=== PATIENT | female | born 1985 | race Caucasian/White ===

== ENCOUNTER 2021-10-23 04:12 | Inpatient (IN) | payer BC ==
[2021-10-23] MEDS ORDERED: Nalbuphine 10 MG/1 ML Vial IVPUSH PRN (05:35)
[2021-10-23] MEDS ORDERED: Oxytocin/Lactated Ringers 10 UNIT/1,000 ML BAG IV SCH ×2 (05:45)
[2021-10-23] MEDS ORDERED: Lactated Ringers 1,000 ML IV SCH (05:45)
[2021-10-23] MEDS ORDERED: Bupivacaine/fentaNYL/NS 100 ML Bag EPIDUR PRN (06:12)
[2021-10-23] MEDS ORDERED: diphenhydrAMINE 50 MG/ML SDV IVPUSH PRN (06:12)
[2021-10-23] MEDS ORDERED: fentaNYL 100 MCG/2 ML SDV EPIDUR PRN (06:12)
[2021-10-23] MEDS ORDERED: ePHEDrine 50 MG/ML SDV IVPUSH PRN (06:12)
--- NOTE | 2021-10-23 06:15 | PCM.PREANE ---
Preanesthetic Assessment - Procedure Proposed Procedure: Labor epidural - Anesthesia/Transfusion/Family Hx Anesthesia History: Prior Anesthesia Without Reaction Family History of Anesthesia Reaction: No Transfusion History: No Prior Transfusion(s) Intubation History: Unknown - Review of Systems General: No Symptoms Pulmonary: Cough Cardiovascular: No Symptoms Gastrointestinal: Abdominal Pain (uterine contractions), Nausea Neurological: No Symptoms Other: Reports: Easy Bruising, Depression - Physical Assessment NPO Status Date: 10/22/21 NPO Status Time: 22:30 Vital Signs: Last Vital Signs Temp 97.7 F 10/23/21 04:55 Pulse 81 10/23/21 04:55 Resp 20 10/23/21 04:55 BP 124/80 10/23/21 04:55 Pulse Ox 94 L 10/23/21 04:55 Height: 1.7 m Weight: 121.109 kg ASA Class: 3 Mental Status: Alert & Oriented x3 Airway Class: Mallampati = 2 Dentition: Reports: Caries Thyro-Mental Finger Breadths: 3 Mouth Opening Finger Breadths: 3 ROM/Head Extension: Full Lungs: Clear to Auscultation, Normal Respiratory Effort Cardiovascular: Regular Rate, Regular Rhythm, No Murmurs - Lab Values: Laboratory Last Values WBC 8.76 K/mm3 (3.98-10.04) 10/23/21 05:50 RBC 4.30 M/mm3 (3.98-5.22) 10/23/21 05:50 Hgb 12.4 gm/dl (11.2-15.7) 10/23/21 05:50 Hct 36.6 % (34.1-44.9) 10/23/21 05:50 MCV 85.1 fl (79.4-94.8) 10/23/21 05:50 MCH 28.8 pg (25.6-32.2) 10/23/21 05:50 MCHC 33.9 g/dl (32.2-35.5) 10/23/21 05:50 RDW Std Deviation 41.0 fL (36.4-46.3) 10/23/21 05:50 Plt Count 182 K/mm3 (182-369) 10/23/21 05:50 MPV 11.5 fl (9.4-12.3) 10/23/21 05:50 Neut % (Auto) 76.8 % (34.0-71.1) H 10/23/21 05:50 Lymph % (Auto) 13.2 % (19.3-51.7) L 10/23/21 05:50 [place] % (Auto) 8.6 % (4.7-12.5) 10/23/21 05:50 Eos % (Auto) 0.7 (0.7-5.8) 10/23/21 05:50 Baso % (Auto) 0.2 % (0.1-1.2) 10/23/21 05:50 Neut # (Auto) 6.73 K/mm3 (1.56-6.13) H 10/23/21 05:50 Lymph # (Auto) 1.16 K/mm3 (1.18-3.74) L 10/23/21 05:50 [place] # (Auto) 0.75 K/mm3 (0.24-0.36) H 10/23/21 05:50 Eos # (Auto) 0.06 K/mm3 (0.04-0.36) 10/23/21 05:50 Baso # (Auto) 0.02 K/mm3 (0.01-0.08) 10/23/21 05:50 - Acknowledgements Anesthesia Type Planned: Epidural Pt an Appropriate Candidate for the Planned Anesthesia: Yes Alternatives and Risks of Anesthesia Discussed w Pt/Guardian: Yes Pt/Guardian Understands and Agrees with Anesthesia Plan: Yes PreAnesthesia Questionnaire HEENT History: Reports: None Cardiovascular History: Reports: None Respiratory History: Reports: None Gastrointestinal History: Reports: GERD Genitourinary History: Reports: None 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: Musculoskeletal History: Reports: None Neurological History: Reports: None Psychiatric History: Reports: None Endocrine/Metabolic History: Reports: Obesity/BMI 30+ Hematologic History: Reports: None Immunologic History: Reports: None Oncologic (Cancer) History: Reports: None Dermatologic History: Reports: None - Past Surgical History HEENT Surgical History: Reports: Oral Surgery (wisdom teeth) Female Surgical History: Reports: Other (See Below) ("early trimester ") - SUBSTANCE USE Tobacco Use Status *Q: Never Tobacco User Tobacco Use Within Last Twelve Months: No Second Hand Smoke Exposure: Yes Days Per Week of Alcohol Use: 0 Number of Drinks Per Day: 0 Total Drinks Per Week: 0 Recreational Drug Use History: No - CURRENT (IN HOUSE) MEDS Current Meds: Current Medications Lactated Ringer's (Ringers, Lactated) 1,000 mls @ 100 mls/hr IV ASDIRECTED NATTY Oxytocin/Lactated Ringer's (Pitocin In Lr 10 Units/1,000 Ml) 10 unit in 1,000 mls @ 12 mls/hr IV TITRATE NATTY; Protocol Oxytocin/Lactated Ringer's (Pitocin In Lr 10 Units/1,000 Ml) 10 unit in 1,000 mls @ 100 mls/hr IV .CONTINUOUS NATTY Nalbuphine HCl (Nalbuphine 10 Mg/1 Ml Vial) 10 mg IVPUSH Q2H PRN PRN Reason: Pain Sodium Chloride (Sodium Chloride 0.9% 10 Ml Syringe) 10 ml FLUSH 0900,2100 NATTY
--- NOTE | 2021-10-23 07:42 | PCM.LDHP ---
L&D History of Present Illness - General Date of Service: 10/23/21 Admit Problem/Dx: Patient Status Order with Admit Dx/Problem 10/23/21 04:57 Patient Status [ADT] Routine Admission Diagnosis/Problem Admission Diagnosis/Problem Source of Information: Patient History Limitations: Reports: No Limitations - History of Present Illness Introduction:: Patient is a 36 y/o at 39 6/7 wks who presented early this AM in labor. Contractions started middle of night. No LOF. Currently resting with epidural, but notes some more pressure Pain Score: 10 - Related Data Allergies/Adverse Reactions: Allergies Allergy/AdvReac Type Severity Reaction Status Date / Time acetaminophen Allergy Rash Verified 10/23/21 06:18 [From [facility] NyQuil Cold/Flu Liquicap] carrot Allergy Rash Verified 10/23/21 06:18 celery Allergy Rash Verified 10/23/21 06:18 dextromethorphan Allergy Rash Verified 10/23/21 06:18 [From [facility] NyQuil Cold/Flu Liquicap] doxylamine Allergy Rash Verified 10/23/21 06:18 [From [facility] NyQuil Cold/Flu Liquicap] Past Medical History Gastrointestinal History: Reports: GERD 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: : 4 Para: 2 LMP (Approximate): Psychiatric History: Reports: Depression Endocrine/Metabolic History: Reports: Obesity/BMI 30+ - Past Surgical History HEENT Surgical History: Reports: Oral Surgery (wisdom teeth) Female Surgical History: Reports: D&C Social & Family History - Tobacco Use Tobacco Use Status *Q: Never Tobacco User Second Hand Smoke Exposure: Yes - Alcohol Use Alcohol Use History: No Days Per Week of Alcohol Use: 0 Number of Drinks Per Day: 0 Total Drinks Per Week: 0 - Recreational Drug Use Recreational Drug Use: No H&P Review of Systems - Review of Systems: Review Of Systems: See Below General: Reports: No Symptoms Pulmonary: Reports: No Symptoms Cardiovascular: Reports: No Symptoms Gastrointestinal: Reports: No Symptoms Genitourinary: Reports: No Symptoms Musculoskeletal: Reports: No Symptoms Psychiatric: Reports: No Symptoms Neurological: Reports: No Symptoms L&D Exam - Exam Exam: See Below - Vital Signs Vital Signs: Last Vital Signs Temp 36.5 C 10/23/21 04:55 Pulse 81 10/23/21 04:55 Resp 20 10/23/21 04:55 BP 124/80 10/23/21 04:55 Pulse Ox 94 L 10/23/21 04:55 Weight: 121.109 kg - OB Specific Contraction Intensity: Strong Movement: Active Heart Tones: Present Heart Tones per Min: 135 Heart Rate (FHR) Variability: Moderate (6-25 bpm) Presentation: Vertex - Sharpe Score Sharpe Score Cervix Position: Midposition Sharpe Score Consistency: Soft Sharpe Score Effacement: >80% Sharpe Score Dilation: > 5 cm Sharpe Score Infant's Station: -2 Sharpe Score Total: 10 - Exam General: Alert, Oriented, Cooperative Lungs: Clear to Auscultation, Normal Respiratory Effort Cardiovascular: Regular Rate, Regular Rhythm GI/Abdominal Exam: Soft, Non-Tender Genitourinary: Normal external exam Extremities: Normal Inspection Skin: Warm, Dry, Intact - Patient Data Lab Results Last 24 hrs: Laboratory Results - last 24 hr 10/23/21 10/23/21 Range/Units 05:50 05:52 WBC 8.76 (3.98-10.04) K/mm3 RBC 4.30 (3.98-5.22) M/mm3 Hgb 12.4 (11.2-15.7) gm/dl Hct 36.6 (34.1-44.9) % MCV 85.1 (79.4-94.8) fl MCH 28.8 (25.6-32.2) pg MCHC 33.9 (32.2-35.5) g/dl RDW Std Deviation 41.0 (36.4-46.3) fL Plt Count 182 (182-369) K/mm3 MPV 11.5 (9.4-12.3) fl Neut % (Auto) 76.8 H (34.0-71.1) % Lymph % (Auto) 13.2 L (19.3-51.7) % [place] % (Auto) 8.6 (4.7-12.5) % Eos % (Auto) 0.7 (0.7-5.8) Baso % (Auto) 0.2 (0.1-1.2) % Neut # (Auto) 6.73 H (1.56-6.13) K/mm3 Lymph # (Auto) 1.16 L (1.18-3.74) K/mm3 [place] # (Auto) 0.75 H (0.24-0.36) K/mm3 Eos # (Auto) 0.06 (0.04-0.36) K/mm3 Baso # (Auto) 0.02 (0.01-0.08) K/mm3 SARS-CoV-2 RNA (DOUGLAS) Negative (NEGATIVE) Result Diagrams: 10/23/21 05:50 - Problem List (1) 39 weeks gestation of SNOMED Code(s): 63103217 ICD Code: Z3A.39 - 39 WEEKS GESTATION OF Status: Acute Current Visit: Yes (2) Normal labor SNOMED Code(s): 08660350 ICD Code: O80 - ENCOUNTER FOR FULL-TERM UNCOMPLICATED DELIVERY; Z37.9 - OUTCOME OF DELIVERY, UNSPECIFIED Status: Acute Current Visit: Yes Problem List Initiated/Reviewed/Updated: Yes Orders Last 24hrs: Active Orders 24 hr Category Date Time Status Patient Status [ADT] Routine ADT 10/23/21 04:57 Active Activity as Tolerated [RC] PFP Care 10/23/21 05:35 Active Communication Order [RC] ASDIRECTED Care 10/23/21 05:35 Active Heart Tones [RC] ASDIRECTED Care 10/23/21 05:37 Active Non Stress Test [RC] PER UNIT ROUTINE Care 10/23/21 04:57 Active Non Stress Test [RC] PER UNIT ROUTINE Care 10/23/21 05:35 Active Notify Provider [RC] ASDIRECTED Care 10/23/21 06:12 Active Notify Provider [RC] PFP Care 10/23/21 05:35 Active Notify Provider [RC] PRN Care 10/23/21 05:35 Active Peripheral IV Care [RC] . DIRECTED Care 10/23/21 05:37 Active Pump Management, Intrathecal [RC] ASDIRECTED Care 10/23/21 05:37 Active Urinary Catheter Assessment [RC] ASDIRECTED Care 10/23/21 05:35 Active Vital Signs [RC] PER UNIT ROUTINE Care 10/23/21 04:57 Active Vital Signs [RC] PER UNIT ROUTINE Care 10/23/21 05:35 Active Regular Diet [DIET] Diet 10/23/21 Breakfast Active RAPID PLASMA REAGIN,RPR [CHEM] Routine Lab 10/23/21 05:50 Received TYPE AND SCREEN [BBK] Stat Lab 10/23/21 05:50 Received Bupivacaine/fentaNYL/NS [fentaNYL/Bupivacaine/NS 2 MCG- Med 10/23/21 06:12 Active 0.125% 100 ML] 100 ml EPIDUR ASDIRECTED PRN Lactated Ringers [Ringers, Lactated] 1,000 ml Med 10/23/21 05:45 Active IV ASDIRECTED Nalbuphine [Nubain] Med 10/23/21 05:35 Active 10 mg IVPUSH Q2H PRN Oxytocin/Lactated Ringers [Pitocin in LR 10 Units/1,000 Med 10/23/21 05:45 Active ML] 10 unit in 1,000 ml IV .CONTINUOUS Oxytocin/Lactated Ringers [Pitocin in LR 10 Units/1,000 Med 10/23/21 05:45 A ctive ML] 10 unit in 1,000 ml IV TITRATE Sodium Chloride 0.9% [Saline Flush] Med 10/23/21 09:00 Active 10 ml FLUSH 0900,2100 diphenhydrAMINE [Benadryl] Med 10/23/21 06:12 Active 25 mg IVPUSH Q6H PRN ePHEDrine [ePHEDrine sulfate] Med 10/23/21 06:12 Active 5 mg IVPUSH ASDIRECTED PRN fentaNYL [Sublimaze] Med 10/23/21 06:12 Active 100 mcg EPIDUR Q3H PRN Electronic Heart Tones Ext w TOCO [WOMSER] Oth 10/23/21 05:35 Ordered Routine Electronic Heart Tones Internal [WOMSER] Per Unit Oth 10/23/21 05:35 Ordered Routine Peripheral IV Insertion Adult [OM.PC] Routine Oth 10/23/21 05:35 Ordered Resuscitation Status Routine Resus Stat 10/23/21 04:57 Ordered Medication Orders Diphenhydramine HCl (Diphenhydramine 50 Mg/Ml Sdv) 25 mg IVPUSH Q6H PRN PRN Reason: pruritis Ephedrine Sulfate (Ephedrine 50 Mg/Ml Sdv) 5 mg IVPUSH ASDIRECTED PRN PRN Reason: Hypotension Fentanyl (Fentanyl 100 Mcg/2 Ml Sdv) 100 mcg EPIDUR Q3H PRN PRN Reason: Pain Last Admin: 10/23/21 06:21 Dose: 100 mcg Documented by: [email or web address] Fentanyl/Bupivacaine HCl (Bupivacaine/Fentanyl/Ns 100 Ml Bag) 100 ml EPIDUR ASDIRECTED PRN PRN Reason: Pain Last Admin: 10/23/21 06:22 Dose: 100 ml Documented by: TYLER Lactated Ringer's (Ringers, Lactated) 1,000 mls @ 100 mls/hr IV ASDIRECTED NATTY Oxytocin/Lactated Ringer's (Pitocin In Lr 10 Units/1,000 Ml) 10 unit in 1,000 mls @ 12 mls/hr IV TITRATE NATTY; Protocol Oxytocin/Lactated Ringer's (Pitocin In Lr 10 Units/1,000 Ml) 10 unit in 1,000 mls @ 100 mls/hr IV .CONTINUOUS NATTY Nalbuphine HCl (Nalbuphine 10 Mg/1 Ml Vial) 10 mg IVPUSH Q2H PRN PRN Reason: Pain Sodium Chloride (Sodium Chloride 0.9% 10 Ml Syringe) 10 ml FLUSH 0900,2100 [facility] Assessment/Plan Comment:: * Routine cares * Breast feeding * Epidural in place * AROM done with release of meconium stained fluid * Anticipate
[2021-10-23] MEDS ORDERED: Sodium Chloride 0.9% 10 ML Syringe FLUSH SCH (09:00)
--- NOTE | 2021-10-23 09:43 | PCM.DEL ---
L & D Note - General Info Date of Service: 10/23/21 - Delivery Note Labor: Spontaneous Delivery Outcome: Livebirth Delivery Method: Spontaneous Vaginal Delivery-Single Delivery Mode: Spontaneous Presentation: Right Occiput Anterior (JEYSON) Nuchal Cord: Present (tight so not reduced ) Anesthesia Type: Epidural Amniotic Fluid Description: Meconium Stained Episiotomy Type: None Laceration: None Placenta: Intact, Spontaneous Cord: 3 Vessels Estimated Blood Loss: 200 [place]: Suctioned, Bulb Syringe, Stimulated, Warmed, [place] Used Delivery Comments (Free Text/Narrative):: Patient found to be complete and began pushing. With maternal pushing effort head delivered from JEYSON presentation. Nuchal cord present, but tight and so not reduced. With gentle downward traction the shoulders and body delivered. placed on maternal abdomen. Cord clamped and cut. Cord blood obtained. Placenta allowed time to separate and expelled intact. Inspection of perineum with small periurethral laceration. Not repaired - General Info Date of Service: 10/23/21 - Patient Data Vitals - Most Recent: Last Vital Signs Temp 36.5 C 10/23/21 04:55 Pulse 81 10/23/21 04:55 Resp 20 10/23/21 04:55 BP 124/80 10/23/21 04:55 Pulse Ox 94 L 10/23/21 04:55 Weight - Most Recent: 121.109 kg I&O - Last 24 Hours: Intake & Output 10/22/21 10/23/21 10/23/21 22:59 06:59 14:59 Intake Total 1000 Output Total 500 Balance 1000 -500 - Exam Urinary Catheter Total Time: 0Days 0Hours - Problem List & Annotations (1) 39 weeks gestation of SNOMED Code(s): 33330873 Code(s): Z3A.39 - 39 WEEKS GESTATION OF Status: Acute Current Visit: Yes (2) Normal labor SNOMED Code(s): 76684446 Code(s): O80 - ENCOUNTER FOR FULL-TERM UNCOMPLICATED DELIVERY; Z37.9 - OUTCOME OF DELIVERY, UNSPECIFIED Status: Acute Current Visit: Yes (3) Vaginal delivery SNOMED Code(s): 464380233 Code(s): O80 - ENCOUNTER FOR FULL-TERM UNCOMPLICATED DELIVERY Status: Acute Current Visit: Yes - Problem List Review Problem List Initiated/Reviewed/Updated: Yes - My Orders Last 24 Hours: My Active Orders 10/23/21 04:57 Patient Status [ADT] Routine Non Stress Test [RC] PER UNIT ROUTINE Vital Signs [RC] PER UNIT ROUTINE Resuscitation Status Routine 10/23/21 05:35 Activity as Tolerated [RC] PFP Communication Order [RC] ASDIRECTED Non Stress Test [RC] PER UNIT ROUTINE Notify Provider [RC] PFP Notify Provider [RC] PRN Urinary Catheter Assessment [RC] ASDIRECTED Vital Signs [RC] PER UNIT ROUTINE Nalbuphine [Nubain] 10 mg IVPUSH Q2H PRN Electronic Heart Tones Ext w TOCO [WOMSER] Routine Electronic Heart Tones Internal [WOMSER] Per Unit Routine Peripheral IV Insertion Adult [OM.PC] Routine 10/23/21 05:37 Heart Tones [RC] ASDIRECTED Peripheral IV Care [RC] . DIRECTED Pump Management, Intrathecal [RC] ASDIRECTED 10/23/21 05:45 Lactated Ringers [Ringers, Lactated] 1,000 ml IV ASDIRECTED Oxytocin/Lactated Ringers [Pitocin in LR 10 Units/1,000 ML] 10 unit in 1,000 ml IV .CONTINUOUS Oxytocin/Lactated Ringers [Pitocin in LR 10 Units/1,000 ML] 10 unit in 1,000 ml IV TITRATE 10/23/21 05:50 RAPID PLASMA REAGIN,RPR [CHEM] Routine 10/23/21 Breakfast Regular Diet [DIET] 10/23/21 08:48 PATIENT RETYPE [BBK] Routine 10/23/21 09:00 Sodium Chloride 0.9% [Saline Flush] 10 ml FLUSH 0900,2100 - Assessment Assessment:: PPD#0 - Plan Plan:: * Routine cares * Breast feeding * Discharge in 1-2 days
[2021-10-23] MEDS ORDERED: Acetaminophen 325 MG Tab PO PRN (10:05)
[2021-10-23] MEDS ORDERED: Benzocaine/Menthol 20%-0.5% Spray 78 GM Cannister TOP PRN (10:05)
[2021-10-23] MEDS ORDERED: Witch Hazel Medicated Pads 40/Jar TOP PRN (10:05)
[2021-10-23] MEDS: Ibuprofen 600 MG Tab PO PRN (12:29)
[2021-10-23] MEDS: Docusate Sodium 100 MG Cap PO PRN (12:29)
[2021-10-23] MEDS ORDERED: Bupivacaine 0.25% 10 ML SDV ONE (13:00)
[2021-10-23] MEDS ORDERED: Measles, Mumps & Rubella Vaccine 0.5 ML SDV SUBCUT ONE (17:30)
[2021-10-24] MEDS: Ibuprofen 600 MG Tab PO PRN (04:11)
--- NOTE | 2021-10-24 04:43 | PCM.PNPP ---
- General Info Date of Service: 10/24/21 Functional Status: Reports: Pain Controlled, Tolerating Diet, Ambulating, Urinating - Review of Systems General: Reports: No Symptoms Pulmonary: Reports: No Symptoms Cardiovascular: Reports: No Symptoms Gastrointestinal: Reports: No Symptoms Genitourinary: Reports: No Symptoms Musculoskeletal: Reports: No Symptoms - General Info Date of Service: 10/24/21 - Patient Data Vital Signs - Most Recent: Last Vital Signs Temp 36.2 C 10/24/21 04:05 Pulse 78 10/24/21 04:05 Resp 14 10/24/21 04:05 BP 130/88 10/24/21 04:05 Pulse Ox 98 10/24/21 04:05 Weight - Most Recent: 121.109 kg I&O - Last 24 Hours: Intake & Output 10/23/21 10/23/21 10/24/21 14:59 22:59 06:59 Intake Total 0 Output Total 1178 Balance -1178 0 Lab Results - Last 24 Hours: Laboratory Results - last 24 hr 10/23/21 10/23/21 10/23/21 Range/Units 05:50 05:50 05:50 WBC 8.76 (3.98-10.04) K/mm3 RBC 4.30 (3.98-5.22) M/mm3 Hgb 12.4 (11.2-15.7) gm/dl Hct 36.6 (34.1-44.9) % MCV 85.1 (79.4-94.8) fl MCH 28.8 (25.6-32.2) pg MCHC 33.9 (32.2-35.5) g/dl RDW Std Deviation 41.0 (36.4-46.3) fL Plt Count 182 (182-369) K/mm3 MPV 11.5 (9.4-12.3) fl Neut % (Auto) 76.8 H (34.0-71.1) % Lymph % (Auto) 13.2 L (19.3-51.7) % [place] % (Auto) 8.6 (4.7-12.5) % Eos % (Auto) 0.7 (0.7-5.8) Baso % (Auto) 0.2 (0.1-1.2) % Neut # (Auto) 6.73 H (1.56-6.13) K/mm3 Lymph # (Auto) 1.16 L (1.18-3.74) K/mm3 [place] # (Auto) 0.75 H (0.24-0.36) K/mm3 Eos # (Auto) 0.06 (0.04-0.36) K/mm3 Baso # (Auto) 0.02 (0.01-0.08) K/mm3 RPR Non-reactive (NONREACTIVE) SARS-CoV-2 RNA (DOUGLAS) (NEGATIVE) Blood Type O POSITIVE Gel Antibody Screen Negative 10/23/21 Range/Units 05:52 WBC (3.98-10.04) K/mm3 RBC (3.98-5.22) M/mm3 Hgb (11.2-15.7) gm/dl Hct (34.1-44.9) % MCV (79.4-94.8) fl MCH (25.6-32.2) pg MCHC (32.2-35.5) g/dl RDW Std Deviation (36.4-46.3) fL Plt Count (182-369) K/mm3 MPV (9.4-12.3) fl Neut % (Auto) (34.0-71.1) % Lymph % (Auto) (19.3-51.7) % [place] % (Auto) (4.7-12.5) % Eos % (Auto) (0.7-5.8) Baso % (Auto) (0.1-1.2) % Neut # (Auto) (1.56-6.13) K/mm3 Lymph # (Auto) (1.18-3.74) K/mm3 [place] # (Auto) (0.24-0.36) K/mm3 Eos # (Auto) (0.04-0.36) K/mm3 Baso # (Auto) (0.01-0.08) K/mm3 RPR (NONREACTIVE) SARS-CoV-2 RNA (DOUGLAS) Negative (NEGATIVE) Blood Type Gel Antibody Screen Med Orders - Current: Current Medications Acetaminophen (Acetaminophen 325 Mg Tab) 650 mg PO Q4H PRN PRN Reason: mild pain or fever Benzocaine/Menthol (Benzocaine/Menthol 20%-0.5% [place] 78 Gm Cannister) 0 gm TOP ASDIRECTED PRN PRN Reason: Perineal Comfort Measure Docusate Sodium (Docusate Sodium 100 Mg Cap) 100 mg PO BID PRN PRN Reason: Constipation Last Admin: 10/23/21 12:29 Dose: 100 mg Documented by: Ibuprofen (Ibuprofen 600 Mg Tab) 600 mg PO Q6H PRN PRN Reason: Mild pain or fever Last Admin: 10/24/21 04:11 Dose: 600 mg Documented by: Marco Antonio Rivera (Marco Antonio Rivera Medicated Pads 40/Jar) 1 pad TOP ASDIRECTED PRN PRN Reason: Perineal Comfort Measure Discontinued Medications Bupivacaine HCl (Bupivacaine 0.25% 10 Ml Sdv) 10 ml .ROUTE .STK-MED ONE Stop: 10/23/21 13:01 Diphenhydramine HCl (Diphenhydramine 50 Mg/Ml Sdv) 25 mg IVPUSH Q6H PRN PRN Reason: pruritis Ephedrine Sulfate (Ephedrine 50 Mg/Ml Sdv) 5 mg IVPUSH ASDIRECTED PRN PRN Reason: Hypotension Fentanyl (Fentanyl 100 Mcg/2 Ml Sdv) 100 mcg EPIDUR Q3H PRN PRN Reason: Pain Last Admin: 10/23/21 06:21 Dose: 100 mcg Documented by: Fentanyl/Bupivacaine HCl (Bupivacaine/Fentanyl/Ns 100 Ml Bag) 100 ml EPIDUR ASDIRECTED PRN PRN Reason: Pain Last Admin: 10/23/21 06:22 Dose: 100 ml Documented by: Lactated Ringer's (Ringers, Lactated) 1,000 mls @ 100 mls/hr IV ASDIRECTED NATTY Oxytocin/Lactated Ringer's (Pitocin In Lr 10 Units/1,000 Ml) 10 unit in 1,000 mls @ 12 mls/hr IV TITRATE NATTY; Protocol Oxytocin/Lactated Ringer's (Pitocin In Lr 10 Units/1,000 Ml) 10 unit in 1,000 mls @ 100 mls/hr IV .CONTINUOUS NATTY Last Admin: 10/23/21 09:20 Dose: 999 mls/hr Documented by: Measles/Mumps/Rubella Vaccine Live (Measles, Mumps & Rubella Vaccine 0.5 Ml Sdv) 0.5 ml SUBCUT .ONCE ONE Stop: 10/23/21 17:31 Last Admin: 10/23/21 18:06 Dose: 0.5 ml Documented by: Nalbuphine HCl (Nalbuphine 10 Mg/1 Ml Vial) 10 mg IVPUSH Q2H PRN PRN Reason: Pain Sodium Chloride (Sodium Chloride 0.9% 10 Ml Syringe) 10 ml FLUSH 0900,2100 NATTY - Infant Interaction Disposition, : [place] in Room with Family Infant Interaction: Holding Feeding: Breastfed Infant; Nursed Well Support Person: - Recovery Exam Fundal Tone: Firm Fundal Level: 1 Fingerbreadths Below Umbilicus Fundal Placement: Midline Lochia Amount: Small Lochia Color: Rubra/Red Perineum Description: Redness Episiotomy/Laceration: Approximated Bladder Status: Voiding Urinary Elimination: Voided - Exam General: Alert, Oriented, Cooperative GI/Abdominal Exam: Soft, Non-Tender - Problem List & Annotations (1) 39 weeks gestation of SNOMED Code(s): 20265267 Code(s): Z3A.39 - 39 WEEKS GESTATION OF Status: Acute Current Visit: Yes (2) Normal labor SNOMED Code(s): 70523911 Code(s): O80 - ENCOUNTER FOR FULL-TERM UNCOMPLICATED DELIVERY; Z37.9 - OUTCOME OF DELIVERY, UNSPECIFIED Status: Acute Current Visit: Yes (3) Vaginal delivery SNOMED Code(s): 696559448 Code(s): O80 - ENCOUNTER FOR FULL-TERM UNCOMPLICATED DELIVERY Status: Acute Current Visit: Yes - Problem List Review Problem List Initiated/Reviewed/Updated: Yes - My Orders Last 24 Hours: My Active Orders 10/23/21 04:57 Resuscitation Status Routine 10/23/21 10:05 Acetaminophen [TylenoL] 650 mg PO Q4H PRN Benzocaine/Menthol [Dermoplast Pain Relief 20%-0.5% [place]] See Dose Instructions TOP ASDIRECTED PRN Docusate Sodium [Colace] 100 mg PO BID PRN Ibuprofen [Motrin] 600 mg PO Q6H PRN witch Gonzalez [Tucks] 1 pad TOP ASDIRECTED PRN Heat Therapy [OM.PC] PRN 10/23/21 10:05 Activity as Tolerated [RC] PER UNIT ROUTINE Vital Signs [RC] 03,09,15,21 Assess Lochia [WOMSER] Per Unit Routine Assess Uterine Involution [WOMSER] Per Unit Routine Breast Pump [WOMSER] Per Unit Routine Ice Therapy [OM.PC] Per Unit Routine Perineal Care [OM.PC] Per Unit Routine Peripheral IV Discontinue [OM.PC] Routine Sitz Bath [OM.PC] Per Unit Routine 10/23/21 Lunch Regular Diet [DIET] 10/24/21 04:43 Ready for Discharge [RC] PER UNIT ROUTINE 10/24/21 10:05 Heat Therapy [OM.PC] PRN - Assessment Assessment:: PPD#1 - Plan Plan:: * Routine cares * Breast feeding * Discharge today
[2021-10-24] MEDS: Docusate Sodium 100 MG Cap PO PRN (09:05)
[2021-10-24] MEDS ORDERED: Measles, Mumps & Rubella Vaccine 0.5 ML SDV SUBCUT ONE (09:07)
--- NOTE | 2021-10-24 14:28 | PCM48HPAN ---
Post Anesthesia Note - EVALUATION WITHIN 48HRS OF ANESTHETIC Vital Signs in Normal Range: Yes Patient Participated in Evaluation: Yes Respiratory Function Stable: Yes Airway Patent: Yes Cardiovascular Function Stable: Yes Hydration Status Stable: Yes Pain Control Satisfactory: Yes Nausea and Vomiting Control Satisfactory: Yes Mental Status Recovered: Yes Vital Signs: Last Vital Signs Temp 97.7 F 10/24/21 11:50 Pulse 78 10/24/21 11:50 Resp 18 10/24/21 11:50 BP 126/73 10/24/21 11:50 Pulse Ox 99 10/24/21 11:50
== END 2021-10-24 13:30 | disposition home or self-care (01) | DRG 560 ==
LOC: JD.OBCHECK 04:12 → JD.OB 04:12 → JD.OBCHECK 08:59 → JD.OB 09:00 → OBSVTOIN 09:20 → JD.OB 09:21
PROVIDERS: ADMIT Obstetrics & Gynecology; ATTEND Obstetrics & Gynecology
PROC: 10E0XZZ Delivery of Products of Conception, External Approach (ICD-10-PCS; principal; 2021-10-23)
PROC: 00HU33Z Insertion of Infusion Device into Spinal Canal, Percutaneous Approach (ICD-10-PCS; principal; 2021-10-23)
PROC: 3E0R3BZ Introduction of Anesthetic Agent into Spinal Canal, Percutaneous Approach (ICD-10-PCS; principal; 2021-10-23)
PROC: 10907ZC Drainage of Amniotic Fluid, Therapeutic from Products of Conception, Via Natural or Artificial Opening (ICD-10-PCS; principal; 2021-10-23)
DX: O77.0 Labor and delivery complicated by meconium in amniotic fluid (principal); Z3A.39 39 weeks gestation of pregnancy; Z37.0 Single live birth; O69.1XX0 Labor and delivery complicated by cord around neck, with compression, not applicable or unspecified; Z20.822 Contact with and (suspected) exposure to COVID-19; O99.214 Obesity complicating childbirth; E66.9 Obesity, unspecified
CPT/HCPCS: 36415; 51701; 59025; 59409; 85025; 86592; 86850; 86900; 86901; 90707; A9270-GY; J2590; J3010; J3490; U0002

== ENCOUNTER 2023-01-22 18:18 | Inpatient (IN) | payer BC ==
[~2023-01-22 18:18] MED LIST: Lidocaine 1.5% with EPINEPHrine 1:200,000 5 ML Amp ONE; ePHEDrine 50 MG/ML SDV ONE
[2023-01-22] MEDS: Lactated Ringers 1,000 ML IV SCH ×2 (19:05→20:40)
[2023-01-22] MEDS ORDERED: Nalbuphine 10 MG/0.5 ML Syringe IVPUSH PRN (19:10)
[2023-01-22] MEDS ORDERED: Oxytocin/Lactated Ringers 10 UNIT/1,000 ML BAG IV SCH ×2 (19:15)
[2023-01-22] MEDS ORDERED: fentaNYL 100 MCG/2 ML SDV ONE (19:44)
[2023-01-22] MEDS ORDERED: fentaNYL 100 MCG/2 ML SDV EPIDUR PRN (20:35)
[2023-01-22] MEDS ORDERED: ePHEDrine 50 MG/ML SDV IVPUSH PRN (20:35)
[2023-01-22] MEDS ORDERED: Bupivacaine/fentaNYL/NS 100 ML Bag EPIDUR PRN (20:35)
[2023-01-22] MEDS ORDERED: diphenhydrAMINE 50 MG/ML SDV IVPUSH PRN (20:35)
[2023-01-22] MEDS ORDERED: Docusate Sodium 100 MG Cap PO PRN (23:19)
[2023-01-22] MEDS ORDERED: Witch Hazel Medicated Pads 40/Jar TOP PRN (23:19)
[2023-01-22] MEDS ORDERED: Benzocaine/Menthol 20%-0.5% Spray 78 GM Cannister TOP PRN (23:19)
[2023-01-22] MEDS: Acetaminophen 325 MG Tab PO PRN (23:30)
[2023-01-22] MEDS: Ibuprofen 600 MG Tab PO PRN (23:31)
[2023-01-23] MEDS: Acetaminophen 325 MG Tab PO PRN ×2 (05:14→18:52)
[2023-01-23] MEDS: Ibuprofen 600 MG Tab PO PRN ×2 (11:50→23:06)
[2023-01-24] MEDS ORDERED: Acetaminophen/Butalbital/Caffeine 325-50-40 MG Tab PO ONE (07:32)
[2023-01-24] MEDS ORDERED: Lactated Ringers 1,000 ML IV SCH (07:45)
== END 2023-01-24 13:05 | disposition home or self-care (01) | DRG 560 ==
LOC: JD.OBCHECK 18:18 → JD.OB 19:10 → OBSVTOIN 22:45 → JD.OB 22:46
PROVIDERS: ADMIT Obstetrics & Gynecology; ATTEND Obstetrics & Gynecology
PROC: 10E0XZZ Delivery of Products of Conception, External Approach (ICD-10-PCS; principal; 2023-01-22)
PROC: 10907ZC Drainage of Amniotic Fluid, Therapeutic from Products of Conception, Via Natural or Artificial Opening (ICD-10-PCS; 2023-01-22)
PROC: 3E0R3BZ Introduction of Anesthetic Agent into Spinal Canal, Percutaneous Approach (ICD-10-PCS; 2023-01-22)
PROC: 00HU33Z Insertion of Infusion Device into Spinal Canal, Percutaneous Approach (ICD-10-PCS; 2023-01-22)
DX: O99.214 Obesity complicating childbirth (principal); Z37.0 Single live birth; Z91.018 Allergy to other foods; Z98.890 Other specified postprocedural states; Z3A.39 39 weeks gestation of pregnancy; Z88.8 Allergy status to other drugs, medicaments and biological substances
CPT/HCPCS: 36415; 51701; 59025; 59409; 85025; 86592; 86850; 86900; 86901; A9270-GY; J2590; J3490; J7120